=== PATIENT | female | born 1965 | race Caucasian/White ===

== ENCOUNTER 2018-04-21 00:48 | Emergency (ER) | payer OTHER ==
--- NOTE | 2018-04-21 01:49 | RADIOLOGY REPORT (SQ) ---
XR LUMBAR SPINE ANTEROPOSTERIOR, LATERAL, AND OBLIQUES HISTORY: Lower back pain. COMPARISON: None. FINDINGS: 5 non-rib bearing lumbar-type vertebra are present. Mild retrolisthesis of L1-L2 and L2-L3. Vertebral body heights are preserved. Very mild degenerative disc disease and facet arthropathy. No evidence of spondylolysis on the oblique views. SI joints are intact. IMPRESSION: No acute fracture or static listhesis.
[2018-04-21] MEDS ORDERED: KETOROLAC TROMETHAMINE 60 MG/2 ML SDV IM ONE (01:50)
[2018-04-21] MEDS ORDERED: CYCLOBENZAPRINE HCL 10 MG TABLET PO ONE (01:50)
--- NOTE | 2018-04-21 02:50 | ER Document Report ---
ED General - General Chief Complaint: Back Pain Stated Complaint: BACK PAIN Time Seen by Provider: 04/21/18 01:02 Notes: Patient is a 52-year-old female presenting to the emergency department complaining of left leg pain and muscle spasms. 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 Patient states she has no history of sciatic nerve pain, denies any trauma or injury to her lower back or left leg. States she put a heating pad on it this evening which helped the discomfort a little bit. States that the muscle spasms in her left buttocks down her left leg are intermittent and worse with movement. Patient denies any urinary incontinence, loss of bowel or bladder. Patient also denies numbness or tingling in either foot. Patient denies chest pain, shortness of breath, abdominal pain, nausea, vomiting , fever. Past medical history: Hidradenitis suprativa, asthma Medications: Bactrim, albuterol Allergies: Amoxicillin Surgical history: None She denies smoking, EtOH use, illicit drug use. TRAVEL OUTSIDE OF THE [place] IN LAST 30 DAYS: No - Related Data Allergies/Adverse Reactions: amoxicillin [Amoxicillin] Allergy (Verified 10/30/15 10:35) Past Medical History - General Information source: Patient - Social History Smoking Status: Unknown if Ever Smoked Lives with: Family Family History: Reviewed & Not Pertinent Patient has suicidal ideation: No Patient has homicidal ideation: No Pulmonary Medical History: Reports: Hx Asthma Renal/ Medical History: Denies: Hx Peritoneal Dialysis GI Medical History: Reports: Hx Gastroesophageal Reflux Disease - Immunizations Immunizations up to date: Yes Hx Diphtheria, Pertussis, Tetanus Vaccination: Yes Review of Systems - Review of Systems Constitutional: See HPI EENT: No symptoms reported Cardiovascular: See HPI Respiratory: No symptoms reported Gastrointestinal: See HPI Genitourinary: See HPI Female Genitourinary: No symptoms reported Musculoskeletal: See HPI Skin: No symptoms reported Hematologic/Lymphatic: No symptoms reported Neurological/Psychological: No symptoms reported Physical Exam - Vital signs Vitals: Temp Pulse Resp BP Pulse Ox 98.2 F 100 16 131/86 H 97 04/21/18 00:55 04/21/18 00:55 04/21/18 00:55 04/21/18 00:55 04/21/18 00:55 - Notes Notes: GENERAL: Alert, interacts well. No acute distress. HEAD: Normocephalic, atraumatic. EYES: Pupils equal, round, and reactive to light. Extraocular movements intact. ENT: Oral mucosa moist, tongue midline. NECK: Full range of motion. Supple. Trachea midline. LUNGS: Clear to auscultation bilaterally, no wheezes, rales, or rhonchi. No respiratory distress. HEART: Regular rate and rhythm. No murmur ABDOMEN: Soft, non-tender. Non-distended. Bowel sounds present in all 4 quadrants. EXTREMITIES: Moves all 4 extremities spontaneously. No edema, normal radial and dorsalis pedis pulses bilaterally. No cyanosis. BACK: no cervical, thoracic midline tenderness. Minor lumbar spinal tenderness with left paraspinal tenderness moving into her left buttocks, no sacral spine tenderness. no saddle anesthesia, normal distal neurovascular exam. 5/5 strength all 4 extremities. Straight leg raise elicits pain at 15 degrees left leg, 45 degrees right leg. NEUROLOGICAL: Alert and oriented x3. Normal speech. PSYCH: Normal affect, normal mood. SKIN: Warm, dry, normal turgor. No rashes or lesions noted. Course - Re-evaluation Re-evalutation: XR shows no bony abnormalilties. With treatments in the emergency room patient' s pain has gotten better, "it is almost gone now". Talked to patient about need for follow-up with primary care in 24-48 hours. Return precautions given. - Vital Signs Vital signs: Temp Pulse Resp BP Pulse Ox 98.5 F 87 16 124/66 97 04/21/18 03:14 04/21/18 03:14 04/21/18 03:14 04/21/18 03:14 04/21/18 03:14 Discharge - Discharge Clinical Impression: Sciatic leg pain Condition: Stable Disposition: HOME, SELF-CARE Instructions: Warm Packs ([facility]) Additional Instructions: Sciatica Your symptoms suggest "sciatica." The pain of sciatica typically radiates down the leg. Numbness in the foot or calf may also occur. Sciatica is caused by irritation of the sciatic nerve or its branches. The irritation can be due to a herniated disk in the spine, swelling and inflammation in the muscles surrounding the sciatic nerve, or direct injury of the nerve itself. Most cases of sciatica will resolve with medical treatment. Bed rest is usually recommended initially. Surgery is only necessary when the condition will not improve with rest and antiinflammatory medication. Muscle relaxers are often given if muscle soreness is present. A CAT scan of the back may be performed if a herniated disk is suspected. Re-examination is necessary if you develop increasing numbness, localized weakness in the foot or ankle, or if the pain does not respond to rest. Prescriptions: Ketorolac Tromethamine [Toradol 10 mg Tablet] 10 mg PO Q8HP PRN #24 tablet PRN Reason: Cyclobenzaprine HCl [Flexeril 10 mg Tablet] 10 mg PO TIDP PRN #15 tab PRN Reason: Referrals: PAWAN LEWIS MD [Primary Care Provider] - Follow up as needed
[2018-04-21 03:16] VITALS: BP 124/66
== END 2018-04-21 03:25 | disposition home or self-care (01) ==
LOC: ER 00:48
DX: M54.32 Sciatica, left side (principal); M62.838 Other muscle spasm; J45.909 Unspecified asthma, uncomplicated; Z88.0 Allergy status to penicillin
CPT/HCPCS: 99283; 96372; 72110; J1885

== ENCOUNTER 2019-11-16 17:11 | Emergency (ER) | payer OTHER ==
[2019-11-16] MEDS ORDERED: DIPH/PERTUSS(ACELL)/TETANUS VAC/PF 0.5 ML SYR (>=10YO) IM ONE (17:36)
[2019-11-16] MEDS ORDERED: HYDROCODONE/ACETAMINOPHEN 5-325 MG TABLET PO ONE (17:36)
--- NOTE | 2019-11-16 17:39 | ER Document Report ---
ED Medical Screen (RME) - General Chief Complaint: Dog Bite Stated Complaint: DOG BITE/LEFT HAND,RIGHT ARM Time Seen by Provider: 11/16/19 17:33 Primary Care Provider: PAWAN LEWIS MD [Primary Care Provider] - Follow up as needed TRAVEL OUTSIDE OF THE [place] IN LAST 30 DAYS: No - HPI Notes: 11/16/19 17:37 53-year-old female presents to the emergency room for multiple puncture wounds on her right and left hand as well as her right wrist after 2 of her dogs approximately an hour ago. Patient's tetanus is not up-to-date however both of the dog's rabies vaccinations are up-to-date and she does have on her person. Denies any other area of injury. Has not taken any [id number] medications for pain control. Bleeding is controlled. Does report pain with right hand movement. Patient is right-handed. Denies chest pain shortness of breath, nausea, vomiting, diarrhea, fever, chills, other area of injury. I have greeted and performed a rapid initial assessment of this patient. A comprehensive ED assessment and evaluation of the patient, analysis of test results and completion of the medical decision making process will be conducted by additional ED providers. PHYSICAL EXAMINATION: GENERAL: Well-appearing, well-nourished and in no acute distress. Musculoskeletal: Normal range of motion. Puncture wound to volar and dorsal aspect of right wrist, multiple puncture wounds in right and left hand. NEUROLOGICAL: Normal speech, normal gait. SKIN: Warm, Dry, normal turgor, no rashes or lesions noted. see MS note - Related Data Allergies/Adverse Reactions: amoxicillin [Amoxicillin] Allergy (Verified 10/30/15 10:35) Past Medical History Pulmonary Medical History: Reports: Hx Asthma Renal/ Medical History: Denies: Hx Peritoneal Dialysis GI Medical History: Reports: Hx Gastroesophageal Reflux Disease - Immunizations Immunizations up to date: Yes Hx Diphtheria, Pertussis, Tetanus Vaccination: Yes Physical Exam - Vital signs Vitals: Temp Pulse Resp BP Pulse Ox 98.5 F 99 16 157/90 H 95 11/16/19 17:15 11/16/19 17:15 11/16/19 17:15 11/16/19 17:15 11/16/19 17:15 Course - Vital Signs Vital signs: Temp Pulse Resp BP Pulse Ox 98.5 F 99 16 157/90 H 95 11/16/19 17:15 11/16/19 17:15 11/16/19 17:15 11/16/19 17:15 11/16/19 17:15 Doctor's Discharge - Discharge Referrals: PAWAN LEWIS MD [Primary Care Provider] - Follow up as needed
--- NOTE | 2019-11-16 18:16 | ER Document Report ---
ED General - General Chief Complaint: Dog Bite Stated Complaint: DOG BITE/LEFT HAND,RIGHT ARM Time Seen by Provider: 11/16/19 17:33 Primary Care Provider: PAWAN LEWIS MD [ACTIVE STAFF] - Follow up as needed Mode of Arrival: Ambulatory Information source: Patient Notes: triage note Patient presents s/p dog bite. She states that both are her dogs, UTD on vaccines. Patient states that her dogs got into a fight and she got in the middle to pull them apart. Patient is alert and oriented, respirations e/u but patient is evidently in pain. Patient does not know when her last tetanus was. Rema notes 11/16/19 17:37 53-year-old female presents to the emergency room for multiple puncture wounds on her right and left hand as well as her right wrist after 2 of her dogs approximately an hour ago. Patient's tetanus is not up-to-date however both of the dog's rabies vaccinations are up-to-date and she does have on her person. Denies any other area of injury. Has not taken any [id number] medications for pain control. Bleeding is controlled. Does report pain with right hand movement. Patient is right-handed. Denies chest pain shortness of breath, nausea, vomiting, diarrhea, fever, chills, other area of injury. my notes 53-year-old female arrives with bilateral hand bites from her 2 dogs who she was trying to separate she has a 50 pound pitbull and a 35 pound mix who got excited as she came home and they became angry at 1 another and began to bite 1 other. She tried to separate them and she got multiple bites on both hands both palmar and dorsal surface and on the fingers and right wrist. Patient reports her dogs had all their shots in early September prior to the COVID 19 virus nationwide pandemic. TRAVEL OUTSIDE OF THE [place] IN LAST 30 DAYS: No - HPI Onset: Just prior to arrival - Related Data Allergies/Adverse Reactions: amoxicillin [Amoxicillin] Allergy (Verified 10/30/15 10:35) Past Medical History - General Information source: Patient - Social History Smoking Status: Never Smoker Cigarette use (# per day): No Chew tobacco use (# tins/day): No Smoking Education Provided: No Frequency of alcohol use: None Drug Abuse: None Lives with: Family - and son who works at [employer] Family History: Reviewed & Not Pertinent Patient has homicidal ideation: No Pulmonary Medical History: Reports: Hx Asthma Renal/ Medical History: Denies: Hx Peritoneal Dialysis GI Medical History: Reports: Hx Gastroesophageal Reflux Disease - Immunizations Immunizations up to date: Yes Hx Diphtheria, Pertussis, Tetanus Vaccination: Yes Review of Systems - Review of Systems Constitutional: No symptoms reported EENT: No symptoms reported Cardiovascular: No symptoms reported Respiratory: No symptoms reported Gastrointestinal: No symptoms reported Genitourinary: No symptoms reported Female Genitourinary: No symptoms reported Musculoskeletal: See HPI Skin: See HPI, Other - Multiple dog bites and skin tears to both hands and wrist on the right Hematologic/Lymphatic: No symptoms reported Neurological/Psychological: No symptoms reported Physical Exam - Vital signs Vitals: Temp Pulse Resp BP Pulse Ox 98.5 F 99 16 157/90 H 95 11/16/19 17:15 11/16/19 17:15 11/16/19 17:15 11/16/19 17:15 11/16/19 17:15 - General General appearance: Alert, Anxious - HEENT Head: Normocephalic, Atraumatic Eyes: Normal Pupils: PERRL Nasal: Normal Mouth/Lips: Normal Mucous membranes: Normal Pharynx: Normal Neck: Normal - Respiratory Respiratory status: No respiratory distress Chest status: Nontender Breath sounds: Normal Chest palpation: Normal - Cardiovascular Rhythm: Regular Heart sounds: Normal auscultation Murmur: No - Abdominal Inspection: Normal Distension: No distension Bowel sounds: Normal Tenderness: Nontender Organomegaly: No organomegaly - Back Back: Normal, Nontender - Extremities General upper extremity: Tender, Normal color, Normal ROM, Normal temperature, Other - Multiple lacerations to include left hand with laceration between the fourth and fifth finger and 2 bites to the distal phalange on the fourth finger as well as a cuticle laceration on the third finger with a palmar PIP laceration and a pointer finger with laceration all these lacerations are approximately point 5 cm in length. The thumb has a pre-articular laceration on the thenar pad. This is on the left. The right hand has a hyper thenar laceration approximately 1/2 cm in length as well as 5 palmar punctures at least 0.25 cm in length and on the ulnar wrist both dorsal and ventral 0.5 skin tears and on the radial wrist the same. General lower extremity: Normal inspection, Nontender, Normal color, Normal ROM, Normal temperature, Normal weight bearing. No: John's sign Course - Vital Signs Vital signs: Temp Pulse Resp BP Pulse Ox 98.5 F 99 16 157/90 H 95 11/16/19 17:33 11/16/19 17:15 11/16/19 17:15 11/16/19 17:15 11/16/19 17:15 Procedures - Laceration/Wound Repair Right Time completed: 19:14 Wound length (cm): 1 - Multiple lacerations to include left hand with laceration between the fourth and fifth finger and 2 bites to the distal phalange on the fourth finger as well as a cuticle laceration on the third finger with a palmar PIP laceration and a pointer finger with laceration all these lacerations are approximately point 5 cm in length. The thumb has a pre-articular laceration on the thenar pad. This is on the left. The right hand has a hyper thenar laceration approximately 1/2 cm in length as well as 5 palmar punctures at least 0.25 cm in length and on the ulnar wrist both dorsal and ventral 0.5 skin tears and on the radial wrist the same. Wound's Depth, Shape: Linear, Other - Other lacerations were punctures Laceration pre-procedure: Jean applied Volume Anesthetic (mLs): 0 Wound explored: Clean Irrigated w/ Saline (mLs): 2 - Liter bottles were used to cleanse the patient's hands and wrists. Wound Debrided: Extensive Wound Repaired With: Steri-strips, Dermabond Critical Care Note - Critical Care Note Total time excluding time spent on procedures (mins): 60 Discharge - Discharge Clinical Impression: Dog bite of left hand Dog bite of right hand Qualifiers: Encounter type: initial encounter Qualified Code(s): S61.451A - Open bite of right hand, initial encounter; W54.0XXA - Bitten by dog, initial encounter Clinical Impression: (Ruled Out): Left hand and foot pain Condition: Good Disposition: HOME, SELF-CARE Additional Instructions: Keep wounds clean and dry return to ER if symptoms persist take medicines as directed encourage fluids Prescriptions: Clindamycin HCl 300 mg PO BID #15 capsule Hydrocodone/Acetaminophen [[place] 5-325 Tablet] 1 each PO BID PRN 7 Days #14 tablet PRN Reason: Referrals: PAWAN LEWIS MD [ACTIVE STAFF] - Follow up as needed
--- NOTE | 2019-11-16 18:21 | RADIOLOGY REPORT (SQ) ---
EXAM DESCRIPTION: WRIST RIGHT 2 VIEWS IMAGES COMPLETED DATE/TIME: 11/16/2019 5:59 pm REASON FOR STUDY: s/p dog bite, reports hand/wrist pain COMPARISON: None. NUMBER OF VIEWS: Three views. TECHNIQUE: AP, lateral, and oblique radiographic images acquired of the right wrist. LIMITATIONS: None. FINDINGS: MINERALIZATION: Normal. BONES: No acute fracture or dislocation. No worrisome bone lesions. Normal alignment. SOFT TISSUES: Diffuse distal forearm and wrist soft tissue swelling. Puncture wounds are present over the ulnar aspect of the wrist and radial aspect of the distal forear m. There is a small amount of soft tissue gas along the forearm and along the thenar eminence of th e hand No retained radiopaque foreign body. OTHER: No other significant finding. IMPRESSION: Soft tissue puncture wounds in the distal forearm and wrist soft tissues from dog bite. Small amount of soft tissue air along the thenar eminence and deep distal forearm soft tissues. No retained radiopaque foreign body. No bone puncture wound identified TECHNICAL DOCUMENTATION: JOB ID: [id number] 2010 [employer]- All Rights Reserved Reading location - IP/workstation name: [id number]
--- NOTE | 2019-11-16 18:24 | RADIOLOGY REPORT (SQ) ---
EXAM DESCRIPTION: HAND RIGHT 3 VIEWS IMAGES COMPLETED DATE/TIME: 11/16/2019 5:59 pm REASON FOR STUDY: s/p dog bite, reports hand/wrist pain COMPARISON: Right wrist 3 views same date EXAM PARAMETERS: NUMBER OF VIEWS: Three views. TECHNIQUE: AP, lateral and oblique radiographic images acquired of the right hand. LIMITATIONS: None. FINDINGS: MINERALIZATION: Normal. BONES: No acute fracture or dislocation. No bony puncture wounds are identified from dog bite. JOINTS: No effusions. SOFT TISSUES: Multiple puncture wounds are present over the distal forearm, wrist and hand. Small am ount of air along the deep tissues distal forearm, and along the palmar aspect and ulnar aspect of th e hand. Diffuse dorsal hand soft tissue swelling OTHER: No other significant finding. IMPRESSION: Soft tissue swelling and soft tissue gas related to dog bite. No bony puncture wound or retained radiopaque foreign body TECHNICAL DOCUMENTATION: JOB ID: [id number] 2010 [employer]- All Rights Reserved Reading location - IP/workstation name: [id number]
--- NOTE | 2019-11-16 18:26 | RADIOLOGY REPORT (SQ) ---
EXAM DESCRIPTION: HAND LEFT 3 VIEWS IMAGES COMPLETED DATE/TIME: 11/16/2019 5:59 pm REASON FOR STUDY: s/p dog bite, reports hand/wrist pain COMPARISON: None. EXAM PARAMETERS: NUMBER OF VIEWS: Three views. TECHNIQUE: AP, lateral and oblique radiographic images acquired of the left hand. LIMITATIONS: None. FINDINGS: MINERALIZATION: Normal. BONES: No acute fracture or dislocation. No worrisome bone lesions. JOINTS: No effusions. SOFT TISSUES: 4th finger diffuse soft tissue swelling is present. There is soft tissue gas along the middle proximal from dog bite, and soft tissue air near the 4th MCP joint from dog bite. No retaine d radiopaque foreign body OTHER: No other significant finding. IMPRESSION: 4th finger diffuse soft tissue swelling and soft tissue gas. No retained radiopaque for eign body. No bony puncture wound from dog bite TECHNICAL DOCUMENTATION: JOB ID: [id number] 2010 [employer]- All Rights Reserved Reading location - IP/workstation name: [id number]
[2019-11-16] MEDS ORDERED: CLINDAMYCIN HCL 150 MG CAPSULE PO ONE (19:17)
[2019-11-16] MEDS ORDERED: HYDROCODONE/ACETAMINOPHEN 5-325 MG (6 TAB/ER DISP) PO PRN (19:18)
[2019-11-16 19:46] VITALS: BP 145/88
== END 2019-11-16 19:44 | disposition home or self-care (01) ==
LOC: ER 17:11
DX: S61.452A Open bite of left hand, initial encounter (principal); S61.255A Open bite of left ring finger without damage to nail, initial encounter; S61.251A Open bite of left index finger without damage to nail, initial encounter; S61.052A Open bite of left thumb without damage to nail, initial encounter; S61.451A Open bite of right hand, initial encounter; S61.551A Open bite of right wrist, initial encounter; W54.0XXA Bitten by dog, initial encounter; Y93.K9 Activity, other involving animal care; Y92.009 Unspecified place in unspecified non-institutional (private) residence as the place of occurrence of the external cause; J45.909 Unspecified asthma, uncomplicated; Z23 Encounter for immunization
CPT/HCPCS: 90471; 90715; 99285